=== PATIENT | male | born 1980 | race Caucasian/White ===

== ENCOUNTER 2022-07-19 22:18 | Emergency (ER) | payer MEDICAID, OTHER ==
[2022-07-19 22:52] LABS: BASOPHILS # (AUTO) 0.1 10^3/uL (0.0-0.1); BASOPHILS % (AUTO) 0.6 %; EOSINOPHILS # (AUTO) 0.1 10^3/uL (0.0-0.7); EOSINOPHILS % (AUTO) 0.5 %; HCT - HEMATOCRIT 45.7 % (42.0-52.0); HGB - HEMOGLOBIN 15.7 g/dL (14.0-18.0); LYMPHOCYTES # (AUTO) 1.4 10^3/uL (1.5-3.5); LYMPHOCYTES % (AUTO) 11.9 %; MEAN CORPUSCULAR HEMOGLOBIN 33.3 pg (27.0-31.0); MEAN CORPUSCULAR HGB CONC 34.4 g/dL (32.0-36.0); MEAN PLATELET VOLUME 8.6 fL (7.4-11.4); MONOCYTES # (AUTO) 1.1 10^3/uL (0.0-1.0); NEUTROPHILS # (AUTO) 9.4 10^3/uL (1.5-6.6); NEUTROPHILS % (AUTO) 77.8 %; PLT - PLATELET COUNT 216 10^3/uL (130-450); RED BLOOD COUNT 4.71 10^6/uL (4.70-6.10); RED CELL DISTRIBUTION WIDTH 13.8 % (12.0-15.0)
[2022-07-19 23:08] LABS: ALBUMIN 4.3 g/dL (3.2-5.5); ALBUMIN/GLOBULIN RATIO 1.2 (1.0-2.2); BILIRUBIN,TOTAL 1.3 mg/dL (0.2-1.0); CALCIUM 9.2 mg/dL (8.5-10.3); POTASSIUM 3.8 mmol/L (3.5-5.0)
--- NOTE | 2022-07-19 23:29 | XRAY Report ---
PROCEDURE: Chest 1 View X-Ray INDICATIONS: CP TECHNIQUE: One view of the chest was acquired. COMPARISON: None. FINDINGS: Surgical changes and devices: None. Lungs and pleura: There is a small left pleural effusion with left basilar opacities consistent with atelectasis or consolidation. No pneumothorax. Mediastinum: Mediastinal contours appear normal. Heart size is normal. Bones and chest wall: No suspicious bony lesions. Overlying soft tissues appear unremarkable. IMPRESSION: 1. Small left pleural effusion with left basilar atelectasis or consolidation. Reviewed by: John Benitez MD on 07/19/2022 11:35 PM PDT Approved by: John Benitez MD on 07/19/2022 11:35 PM PDT Station ID: [id number]
[2022-07-19] MEDS ORDERED: SODIUM CHLORIDE 0.9% 1,000 ML IV STA (23:50)
[2022-07-19] MEDS ORDERED: MORPHINE 2 MG/ML CARPUJECT IVP STA (23:50)
[2022-07-20] MEDS ORDERED: HYDROmorphone 1 MG/ML CARPUJECT IVP STA (00:56)
--- NOTE | 2022-07-20 01:28 | CT Report ---
PROCEDURE: ANGIO CHEST W/WO INDICATIONS: L sided pleuritic pain CONTRAST: IV CONTRAST: Optiray 320 ml: 100 PO CONTRAST: *NO PO CONTRAST TECHNIQUE: After the administration of intravenous contrast, 2 mm axial images were acquired from the pulmonary apices to the posterior costophrenic angles during the arterial phase. In addition, 1 mm lung kernel and 5 mm soft tissue kernel reconstructions were performed. 3-dimensional coronal oblique maximum int ensity projection (MIP) reformats, 8 mm axial MIP, and 5 mm coronal and sagittal MPR reformats were t hen performed through the thorax. For radiation dose reduction, the following was used: automated exp osure control, adjustment of mA and/or kV according to patient size. COMPARISON: Chest x-ray 07/19/2022 FINDINGS: Image quality: Excellent. Pulmonary arteries: Pulmonary arteries are normal in size, and demonstrate no intraluminal filling d efects to suggest central pulmonary embolism. Lower Neck: No lymphadenopathy by size criteria. Thyroid: Visualized thyroid demonstrates no discrete nodules. Axillae: No lymphadenopathy by size criteria. Chest Wall: Unremarkable. Bones: Visualized osseous structures demonstrate no suspicious lesions. Lungs and Airways: There are confluent groundglass opacities in the lower lobes, left greater than ri ght, with areas of consolidation in the left lower lobe. There are mild paraseptal and centrilobular emphysematous changes with an apical predominance. The trachea and central airways are patent. Pleura: No pneumothorax. There is a small left pleural effusion with associated compressive atelectas is. Heart: Heart size is normal. No pericardial effusion. Thoracic Vessels: The thoracic aorta is normal in size. Mediastinum and Rita: No lymphadenopathy by size criteria. Esophagus: No wall thickening. No hiatal hernia. Abdomen: Visualized upper abdomen demonstrates a small oval cyst in the left hepatic lobe measuring up to 1.4 cm. IMPRESSION: 1. No evidence of pulmonary embolism. 2. Small left pleural effusion with left basilar compressive atelectasis. 3. Bilateral confluent groundglass opacities within the lower lobes, left greater than right, with ar eas of consolidation also demonstrated in the left lower lobe. The findings are nonspecific but sugge stive of pneumonia. Reviewed by: John Benitez MD on 07/20/2022 1:33 AM PDT Approved by: John Benitez MD on 07/20/2022 1:33 AM PDT Station ID: [id number]
[2022-07-20] MEDS ORDERED: AMOXICILLIN 250 MG CAPSULE PO STA (01:36)
[2022-07-20] MEDS ORDERED: LIDOCAINE PATCH 5% TOP STA (01:43)
--- NOTE | 2022-07-20 01:44 | ED Physician Documentation ---
PD HPI CHEST PAIN - Stated complaint Stated Complaint: CHEST PX - Chief complaint Chief Complaint: Cardiac - History obtained from History obtained from: Patient - Additional information Additional information: Patient is a 42-year-old male with no significant past medical history presenting for evaluation of left-sided chest pain that radiates into his left shoulder that has been present for 2 days. Patient states that is worse with taking a deep breath. He has had a mild cough which has been nonproductive of sputum. He denies fever, labored breathing, abdominal pain, vomiting or diarrhea. No known injuries. Reports being told in the past he has high blood pressure but does not take medication for it. Denies history of coronary artery disease. He does smoke. Denies drug use. He does use alcohol several times a week but denies withdrawal symptoms if he does not drink. Review of Systems Constitutional: denies: Fever Nose: denies: Congestion Cardiac: reports: Chest pain / pressure Respiratory: reports: Dyspnea, Cough GI: denies: Abdominal Pain, Vomiting : denies: Dysuria Skin: denies: Rash Musculoskeletal: denies: Back pain Neurologic: denies: Headache PD PAST MEDICAL HISTORY - Past Medical History Past Medical History: No Cardiovascular: None Respiratory: None Neuro: None Endocrine/Autoimmune: None GI: None : None HEENT: None Psych: None Musculoskeletal: None Derm: None - Past Surgical History Past Surgical History: Yes General: Other Ortho: Other - Present Medications Home Medications: Ambulatory Orders Medication Instructions Recorded Confirmed Amoxicillin 1,000 mg PO TID 5 Days #30 cap 07/20/22 - Allergies Allergies/Adverse Reactions: Allergies Allergy/AdvReac Type Severity Reaction Status Date / Time No Known Drug Allergies Allergy Verified 07/19/22 22:35 - Social History Does the pt smoke?: Yes Smoking Status: Current every day smoker Does the pt drink ETOH?: Yes Does the pt have substance abuse?: No - Immunizations Immunizations are current?: No - POLST Patient has POLST: No PD ED PE NORMAL - General General: Alert and oriented X 3, No acute distress, Well developed/nourished - HEENT HEENT: Atraumatic, Moist mucous membranes - Neck Neck: Supple, no meningeal sign - Cardiac Cardiac: RRR, No murmur, Strong equal pulses, Other (No crepitus, no rashTo chest wall) - Respiratory Respiratory: No respiratory distress, Other (Diminished breath sounds at the bases, no rales, wheezes or rhonchi) - Abdomen Abdomen: Normal bowel sounds, Soft, Non tender, Non distended - Derm Derm: Warm and dry - Extremities Extremities: No deformity, No edema, No calf tenderness / cord - Neuro Neuro: Normal speech Results - Vitals Vitals: Vital Signs - 24 hr 07/19/22 07/19/22 07/20/22 22:32 22:35 01:00 Temperature 37.0 C 37.0 C Heart Rate 80 80 76 Respiratory 17 16 16 Rate Blood Pressure 157/102 H 157/102 H 152/97 H O2 Saturation 96 96 95 07/20/22 02:01 Temperature 36.5 C Heart Rate 78 Respiratory 16 Rate Blood Pressure 148/87 H O2 Saturation 98 Oxygen O2 Source Room air - EKG (time done) 2222 Rate: Rate (enter#) (75) Rhythm: NSR Intervals: Other (QTC 493) Ischemia: No: ST elevation c/w ischemia - Labs Labs: Laboratory Tests 07/19/22 07/19/22 07/19/22 22:46 22:46 22:46 WBC 12.0 H RBC 4.71 Hgb 15.7 Hct 45.7 MCV 97.0 H MCH 33.3 H MCHC 34.4 RDW 13.8 Plt Count 216 MPV 8.6 Neut # (Auto) 9.4 H Lymph # (Auto) 1.4 L [place] # (Auto) 1.1 H Eos # (Auto) 0.1 Baso # (Auto) 0.1 Absolute Nucleated RBC 0.00 Nucleated RBC % 0.0 Sodium 134 L Potassium 3.8 Chloride 98 L Carbon Dioxide 27 Anion Gap 9.0 BUN 15 Creatinine 1.0 Estimated GFR (MDRD) 81 L Glucose 105 H Calcium 9.2 Total Bilirubin 1.3 H AST 20 ALT 22 Alkaline Phosphatase 73 Troponin I High Sens 4.0 Total Protein 8.0 Albumin 4.3 Globulin 3.7 Albumin/Globulin Ratio 1.2 Lipase 27 SARS-CoV-2 (PCR) 07/20/22 01:51 WBC RBC Hgb Hct MCV MCH MCHC RDW Plt Count MPV Neut # (Auto) Lymph # (Auto) [place] # (Auto) Eos # (Auto) Baso # (Auto) Absolute Nucleated RBC Nucleated RBC % Sodium Potassium Chloride Carbon Dioxide Anion Gap BUN Creatinine Estimated GFR (MDRD) Glucose Calcium Total Bilirubin AST ALT Alkaline Phosphatase Troponin I High Sens Total Protein Albumin Globulin Albumin/Globulin Ratio Lipase SARS-CoV-2 (PCR) NOT DETECTED PD MEDICAL DECISION MAKING - ED course Complexity details: reviewed results, re-evaluated patient, d/w patient ED course: Patient evaluated for left-sided chest pain and shortness of breath. EKG reviewed and high-sensitivity troponin is negative but with symptoms greater than 6 hours. He is low risk for ACS. Chest x-ray shows a small left-sided pleural effusion. CT scan was obtained given History obtained. It is negative for pulmonary embolism but does demonstrate bilateral groundglass opacities concerning for pneumonia. Patient does smoke. Reviewed these findings with the patient he is comfortable with plan to initiate antibiotic treatment.COVID swab was obtained and is negative. Patient is counseled on concerning symptoms to return for. Departure - Departure Disposition: 01 Home, Self Care Clinical Impression: CAP (community acquired pneumonia) Qualifiers: Laterality: left Lung location: lower lobe of lung Qualified Code(s): J18.9 - Pneumonia, unspecified organism Condition: Stable Instructions: ED Pneumonia Adult Prescriptions: Amoxicillin 1,000 mg PO TID 5 Days #30 cap Comments: You were evaluated for chest pain and found to have pneumonia. Your EKG and car diac marker to check for heart attack are reassuring. However on your x-ray we noticed fluid in your left lung and a CT scan of your chest also demonstrated abnormalities which are concerning for an infection.I have started you on an antibiotic called amoxicillin and sent this prescription to [facility] in [place].Please make sure to complete the full course of the antibiotic. I would also recommend close follow-up with your primary care doctor. If you have any worsening symptoms such as increased pain, difficulty breathing or any new concerns please return to the emergency department. Forms: Activity restrictions Discharge Date/Time: 07/20/22 02:03
[2022-07-20 02:02] VITALS: BP 148/87
== END 2022-07-20 02:03 | disposition home or self-care (01) ==
LOC: ED 22:18
DX: J18.9 Pneumonia, unspecified organism (principal); Z20.822 Contact with and (suspected) exposure to COVID-19; F17.200 Nicotine dependence, unspecified, uncomplicated
CPT/HCPCS: 36415; 71045; 71275; 80053; 83690; 84484; 85025; 87635; 93005; 96374; 96375; 99284; A9270; J1170; Q9967

== ENCOUNTER 2023-06-12 08:00 | Outpatient (CLI) | payer BC ==
--- NOTE | 2023-06-12 12:07 | XRAY Report ---
PROCEDURE: Ankle 3 View LT INDICATIONS: SPRAIN OF LEFT ANKLE TECHNIQUE: 3 views of the ankle were acquired. COMPARISON: None. FINDINGS: Bones: No definite acute appearing fracture or dislocation identified. Probable remote posttraumatic deformity of the distal fibula. Ankle mortise is normally aligned. Soft tissues: Possible tibiotalar joint effusion. IMPRESSION: No definite acute fracture identified. Possible tibiotalar joint effusion. If symptoms persist, follo w-up radiographs and/or CT or MRI may be helpful for further evaluation. Reviewed by: Jonah Mobley MD on 06/12/2023 12:06 PM PDT Approved by: Jonah Mobley MD on 06/12/2023 12:06 PM PDT Station ID: [id number]
== END 2023-06-12 23:59 | disposition home or self-care (01) ==
LOC: DI.S 08:00
PROVIDERS: ATTEND Physician Assistant Medical
DX: S93.492A Sprain of other ligament of left ankle, initial encounter (principal)

== ENCOUNTER 2023-07-10 08:00 | Outpatient (CLI) | payer BC ==
--- NOTE | 2023-07-10 16:43 | XRAY Report ---
PROCEDURE: Ankle 3 View LT INDICATIONS: LEFT ANKLE PAIN TECHNIQUE: 3 views of the ankle were acquired. COMPARISON: X-ray ankle 06/12/2023 FINDINGS: Bones: There is appearance of the distal fibular fracture. Ankle mortise is normally aligned. No moreno spicious bony lesions. Soft tissues: No tibiotalar joint effusion. Achilles tendon appears normal. IMPRESSION: No visualized acute osseous abnormality. If concern persists, CT or MRI is recommended. Reviewed by: Sandee Wilkerson MD on 07/10/2023 4:42 PM PDT Approved by: Sandee Wilkerson MD on 07/10/2023 4:42 PM PDT Station ID: [id number]
== END 2023-07-10 23:59 | disposition home or self-care (01) ==
LOC: DI.S 08:00
PROVIDERS: ATTEND Physician Assistant
DX: M25.572 Pain in left ankle and joints of left foot (principal)

== ENCOUNTER 2023-07-24 08:00 | Outpatient (CLI) | payer BC ==
--- NOTE | 2023-07-24 13:15 | XRAY Report ---
PROCEDURE: Ankle 3 View LT INDICATIONS: LEFT ANKLE PAIN TECHNIQUE: 3 views of the ankle were acquired. COMPARISON: 07/10/2023 FINDINGS: Bones: Nonacute appearing distal fibular shaft fracture. There is a lucency in the medial portion of the tibial plafond, more conspicuous than prior. The ankle mortise appears aligned on these nonweight bearing views. Mild degenerative changes also seen. Overall nonspecific heterogeneous appearance of the bones. Calcaneal enthesopathy. Soft tissues: There is soft tissue swelling. IMPRESSION: Increased conspicuity of a possible lucency in the medial tibial plafond. There is also nonacute appe aring distal fibular shaft fracture. Heterogeneous appearance of the bones and soft tissue swelling a re present. Mild degenerative changes. Depending on clinical context, consider CT or MRI to further e valuate. Reviewed by: Anthony Lagunas MD on 07/24/2023 1:14 PM PDT Approved by: Anthony Lagunas MD on 07/24/2023 1:14 PM PDT Station ID: [id number]
== END 2023-07-24 23:59 | disposition home or self-care (01) ==
LOC: DI.WOS 08:00
PROVIDERS: ATTEND Physician Assistant Surgical
DX: S82.55XA Nondisplaced fracture of medial malleolus of left tibia, initial encounter for closed fracture (principal); S82.832A Other fracture of upper and lower end of left fibula, initial encounter for closed fracture; M19.072 Primary osteoarthritis, left ankle and foot

== ENCOUNTER 2023-08-21 08:00 | Outpatient (CLI) | payer BC ==
--- NOTE | 2023-08-21 16:37 | XRAY Report ---
PROCEDURE: Ankle 3 View LT INDICATIONS: LEFT ANKLE PAIN TECHNIQUE: 3 views of the ankle were acquired. COMPARISON: Left ankle radiographs 07/24/2023 FINDINGS: Bones: Minimally displaced intra-articular fracture is seen at the medial malleolus with unchanged a lignment. Probable chronic distal fibular fracture deformity again noted. Soft tissues: Mild soft tissue edema surrounding the ankle. No suspicious soft tissue calcification. IMPRESSION: Nondisplaced medial malleolar fracture redemonstrated with unchanged alignment. Reviewed by: Jonah Phillips MD on 08/21/2023 4:36 PM PDT Approved by: Jonah Phillips MD on 08/21/2023 4:36 PM PDT Station ID: [id number]
== END 2023-08-21 23:59 | disposition home or self-care (01) ==
LOC: DI.WOS 08:00
PROVIDERS: ATTEND Physician Assistant Surgical
DX: S82.55XD Nondisplaced fracture of medial malleolus of left tibia, subsequent encounter for closed fracture with routine healing (principal)

== ENCOUNTER 2023-09-11 08:00 | Outpatient (CLI) | payer BC ==
--- NOTE | 2023-09-11 16:55 | XRAY Report ---
PROCEDURE: Ankle 3 View LT INDICATIONS: LEFT ANKLE FRACTURE TECHNIQUE: 3 views of the ankle were acquired. COMPARISON: 08/21/2023, 07/24/2023 and 07/10/2023. FINDINGS: Bones: There is interval further healing at nondisplaced medial malleolus fracture site. No new frac ture or dislocation is seen. Old healed injury involving distal fibular shaft is again seen and uncha nged. Ankle mortise is normally aligned. No suspicious bony lesions. Soft tissues: No tibiotalar joint effusion. Achilles tendon appears normal. IMPRESSION: Interval further healing at nondisplaced medial malleolus fracture site. Old distal fibul ar shaft fracture. No new fracture or dislocation. Ankle alignment is anatomic. Reviewed by: Pola Castillo MD on 09/11/2023 4:54 PM PST Approved by: Pola Castillo MD on 09/11/2023 4:54 PM PST Station ID: [id number]
== END 2023-09-11 23:59 | disposition home or self-care (01) ==
LOC: DI.WOS 08:00
PROVIDERS: ATTEND Physician Assistant Surgical
DX: S82.55XD Nondisplaced fracture of medial malleolus of left tibia, subsequent encounter for closed fracture with routine healing (principal); S82.402D Unspecified fracture of shaft of left fibula, subsequent encounter for closed fracture with routine healing

== ENCOUNTER 2023-09-19 09:11 | Outpatient (CLI) | payer BC ==
--- NOTE | 2023-09-19 13:50 | CT Report ---
PROCEDURE: LOWER EXTREMITY WO - LT INDICATIONS: LEFT TIBIA FX TECHNIQUE: Noncontrast 3-mm axial sections acquired from the distal tibial shaft to the talar dome, with coronal and sagittal reformats. For radiation dose reduction, the following was used: automated exposure c ontrol, adjustment of mA and/or kV according to patient size. COMPARISON: Ankle radiograph dated 09/11/2023, 08/21/2023, 07/24/2023 and 07/10/2023 FINDINGS: Image quality: Excellent. Bones: As seen on previous ankle radiographs, there is an oblique fracture through base of medial ma lleolus with fracture line extending to tibial talar joint space. Partial bony union involving superi or and posterior portion of the distal tibial fracture site is seen with persistent up to 2 mm diasta ses in more inferior and anterior portion of distal tibial fracture site and slightly corticated ania in concerning for delayed union. There is also a subacute to chronic appearing nondisplaced fracture involving anterolateral cortex of distal tibial shaft with up to 1.2 mm diastases at fracture site an d corticated margin. Old healed distal fibular shaft fracture is seen with chronic-appearing deformit y. No other fracture or dislocation is noted. Slight widening of lateral ankle mortise is seen. No moreno spicious bony lesions. No gross osteochondral injuries of talar dome Soft tissues: There is no abnormal soft tissue calcifications. Small tibiotalar joint effusion is no haim. No calcified intra-articular loose bodies. No gross full-thickness ankle tendon rupture. Impression: 1. Subacute appearing oblique fracture through base of medial malleolus as described above. Partial b cecil union involving superior posterior portion of the fracture site with up to 2 mm diastases in more inferior and anterior portion of distal tibial fracture site concerning for delayed union. 2. Subacute appearing nondisplaced fracture also noted involving anterior lateral aspect of distal ti bial shaft with up to 1.2 mm diastases at fracture site and corticated margin concerning for delayed union or nonunion. 3. Old healed distal fibular shaft fracture. 4. No acute fracture or dislocation. Slight widening of lateral ankle mortise which may indicate a di stal syndesmotic injury. 5. No abnormal soft tissue calcifications or calcified intra-articular loose bodies. Small tibiotalar joint effusion. No gross full-thickness ankle tendon rupture. Reviewed by: Pola Castillo MD on 09/19/2023 1:49 PM PST Approved by: Pola Castillo MD on 09/19/2023 1:49 PM PST Station ID: [id number]
== END 2023-09-19 09:12 | disposition home or self-care (01) ==
LOC: DI 09:11
PROVIDERS: ATTEND Physician Assistant Surgical
DX: S82.52XD Displaced fracture of medial malleolus of left tibia, subsequent encounter for closed fracture with routine healing (principal); S82.392D Other fracture of lower end of left tibia, subsequent encounter for closed fracture with routine healing; M25.472 Effusion, left ankle

== ENCOUNTER 2024-07-15 08:18 | Outpatient (CLI) | payer BC ==
[2024-07-15 14:29] LABS: BASOPHILS # (AUTO) 0.1 10^3/uL (0.0-0.1); BASOPHILS % (AUTO) 1.4 %; EOSINOPHILS # (AUTO) 0.2 10^3/uL (0.0-0.7); EOSINOPHILS % (AUTO) 1.8 %; HCT - HEMATOCRIT 51.9 % (42.0-52.0); LYMPHOCYTES # (AUTO) 1.9 10^3/uL (1.5-3.5); LYMPHOCYTES % (AUTO) 23.4 %; MEAN CORPUSCULAR HEMOGLOBIN 32.9 pg (27.0-31.0); MEAN CORPUSCULAR HGB CONC 32.8 g/dL (32.0-36.0); MEAN CORPUSCULAR VOLUME 100.4 fL (80.0-94.0); MEAN PLATELET VOLUME 9.8 fL (7.4-11.4); MONOCYTES # (AUTO) 0.6 10^3/uL (0.0-1.0); MONOCYTES % (AUTO) 7.5 %; NEUTROPHILS # (AUTO) 5.3 10^3/uL (1.5-6.6); NEUTROPHILS % (AUTO) 65.7 %; PLT - PLATELET COUNT 227 10^3/uL (130-450); RED BLOOD COUNT 5.17 10^6/uL (4.70-6.10); RED CELL DISTRIBUTION WIDTH 14.6 % (12.0-15.0); WHITE BLOOD COUNT 8.1 x10^3/uL (4.8-10.8)
[2024-07-15 14:37] LABS: CHOL/HDL RATIO 4.3 (<5.0); CHOLESTEROL 231 mg/dL; HDL CHOLESTEROL 54 mg/dL; LDL CHOLESTEROL,CALCULATED 156 mg/dL; LDL/HDL RATIO 2.9 (<3.6); TRIGLYCERIDES 103 mg/dL; VLDL CHOLESTEROL 21 mg/dL
[2024-07-15 14:47] LABS: ALBUMIN 4.3 g/dL (3.2-5.5); ALBUMIN/GLOBULIN RATIO 1.5 (1.0-2.2); ALKALINE PHOSPHATASE 62 IU/L (42-121); ALT ALANINE AMINOTRANSFERASE 30 IU/L (10-60); AST ASPARTATE AMINOTRANSFERASE 24 IU/L (10-42); BILIRUBIN,TOTAL 0.5 mg/dL (0.2-1.0); BUN - BLOOD UREA NITROGEN 11 mg/dL (6-20); CALCIUM 9.2 mg/dL (8.5-10.3); CARBON DIOXIDE - CO2 31 mmol/L (21-32); CHLORIDE 103 mmol/L (101-111); GFR - MDRD 80 (>89); GLUCOSE 91 mg/dL (74-104); POTASSIUM 4.4 mmol/L (3.5-4.5); SODIUM 136 mmol/L (135-145); TOTAL PROTEIN 7.1 g/dL (6.4-8.9)
[2024-07-15 14:52] LABS: ESTIMATED AVERAGE GLUCOSE 91 mg/dL (70-100); HEMOGLOBIN A1c% 4.8 % (4.27-6.07)
== END 2024-07-15 08:19 | disposition home or self-care (01) ==
LOC: LAB.S 08:18
PROVIDERS: ATTEND Nurse Practitioner Gerontology
DX: Z00.00 Encounter for general adult medical examination without abnormal findings (principal)
CPT/HCPCS: 36415; 80053; 80061; 83036; 83721; 84153; 84443; 85025